=== PATIENT | male | born 1975 | race Caucasian/White ===

== ENCOUNTER 2016-07-02 05:57 | Day surgery (SDC) | payer OTHER ==
[~2016-07-02] VITALS: Ht 180.3 cm; Wt 101.8 kg
[2016-07-02] VITALS (7 sets, daily range): BP systolic 104–152; BP diastolic 60–106; PULSE 76–109; RESP 17–22; Ht 180.3 cm; Wt 101.8 kg
[2016-07-02] MEDS ORDERED: CEFAZOLIN 2 GM/50 ML (PMX) 50 ML IVPB SCH (06:00)
[2016-07-02] MEDS ORDERED: SOD CHLORIDE 0.9% 1,000 ML IV SCH (06:00)
[2016-07-02] MEDS ORDERED: BUPIVACAINE 0.25% (MPF) 30 ML INJ ONE (07:58)
[2016-07-02] MEDS ORDERED: MIDAZOLAM 1 MG/ML 2 ML INJ ONE (08:16)
[2016-07-02] MEDS ORDERED: FENTAnyl 50 MCG/ML VIAL ONE (08:17)
[2016-07-02] MEDS ORDERED: PROPOFOL 20 ML ONE (09:10)
[2016-07-02] MEDS ORDERED: NEOSTIGMINE 3 MG/3 ML SYRINGE ONE (09:10)
[2016-07-02] MEDS ORDERED: ROCURONIUM 50 MG INJ ONE (09:10)
[2016-07-02] MEDS ORDERED: LIDOCAINE 2% (SDV) 5 ML INJ ONE (09:10)
[2016-07-02] MEDS ORDERED: ONDANSETRON 4 MG INJ ONE (09:10)
[2016-07-02] MEDS ORDERED: GLYCOPYRROLATE 0.4 MG INJ ONE (09:10)
[2016-07-02] MEDS ORDERED: DIPHENHYDRAMINE 50 MG INJ IV PRN (09:30)
[2016-07-02] MEDS ORDERED: HYDROCODONE/APAP (5/325) TAB PO ONE (09:30)
[2016-07-02] MEDS ORDERED: FENTAnyl 50 MCG/ML VIAL IV PRN (09:30)
[2016-07-02] MEDS ORDERED: morphine (1 MG/ML) 10ML SYRINGE IV PRN ×2 (09:30)
[2016-07-02] MEDS ORDERED: MEPERIDINE 25 MG INJ IV PRN (09:30)
[2016-07-02] MEDS ORDERED: ONDANSETRON 4 MG INJ IV PRN (09:30)
--- NOTE | 2016-07-02 09:34 | OPR ---
DATE OF OPERATION: 07/02/2016 INDICATION: This is a 40-year-old male with pilonidal cyst. He requests surgical excision. Risks, alternatives, benefits, and personnel were discussed with the patient. The patient expressed under standing and consents to the operation. PREOPERATIVE DIAGNOSIS: Pilonidal cyst. POSTOPERATIVE DIAGNOSIS: Pilonidal cyst. OPERATION PERFORMED: 1. Pilonidal cystectomy with 7 cm size incision and 7 x 4 cm size lesion. 2. Localized adjacent tissue transfer with the use of skin flaps with skin defect size at 28 square cm. SURGEON: Mildred Givens MD SPECIMEN: Pilonidal cyst. COMPLICATIONS: None. ANESTHESIA: General. DESCRIPTION OF PROCEDURE: The patient was taken to the OR and prepped and draped in the usual steri le fashion. Surgical timeout was performed. IV antibiotics were given. An elliptical incision was made over the pilonidal cyst with a 10 blade. Dissection cautery was carried down all the way to t he sacral bone. There was good hemostasis. Due to the large tissue defect, skin flaps were raised and localized adjacent tissue transfer with the use of skin flap was performed. Multilayer closure with interrupted 2-0 Vicryl and interrupted 2-0 nylon. Local anesthesia was injected. Dry dressing s were applied. Dictated By: MILDRED FAGAN/SUSY Conf#: [id number] DID#: [id number]
== END 2016-07-02 10:30 | disposition home or self-care (01) ==
LOC: SDS 05:57
PROVIDERS: ATTEND Surgery
DX: L05.91 Pilonidal cyst without abscess (principal); E66.9 Obesity, unspecified; Z68.31 Body mass index [BMI] 31.0-31.9, adult
CPT/HCPCS: 11772; 88304; J2250; J2405; J2710; J3010; Z7512; Z7610